=== PATIENT | female | born 1955 ===

== ENCOUNTER 2018-08-17 02:00 | Observation (INO) | payer MEDICARE, MEDICAID ==
[2018-08-16 15:05] LABS: INR 1.02
[2018-08-17] VITALS (15 sets, daily range): BP systolic 117–149; BP diastolic 64–98
[~2018-08-17] VITALS: Ht 162.6 cm; Wt 94.8 kg
[~2018-08-17 02:00] MED LIST: ALBU8.5H IH; ASPI-764 PO; BUM2 PO; BUPR-474 PO; CHOL100059 PO; ESCI20TA38 PO; FLUT1BLS3 INH; GABA-547 PO; MECO10002 PO; MELO-205 PO; OMEP40CA48 PO; OXYC-373 PO; TRAM-420 PO
[2018-08-17] MEDS ORDERED: fentaNYL CITR 250 MCG/5 ML AMP ONE (10:01)
[2018-08-17] MEDS ORDERED: KETAMINE HCL 200 MG/20 ML MDV ONE (10:01)
[2018-08-17] MEDS ORDERED: PROPOFOL EMUL(*) 10MG/ML 20 ML 20 ML ONE (10:02)
[2018-08-17] MEDS ORDERED: DEXAMETHASONE SOD PHOS 10MG/ML ONE (10:02)
[2018-08-17] MEDS ORDERED: ONDANSETRON 4 MG/2 ML VIAL ONE (10:02)
[2018-08-17] MEDS ORDERED: ROPIVACAINE 0.2% 20 ML VIAL ONE (10:49)
[2018-08-17] MEDS ORDERED: ROPIVACAINE 0.2% 400 MG/200ML 250 ML CONINFUS ONE (11:35)
[2018-08-17] MEDS ORDERED: cloNIDine EPIDUR INJ 100MCG/ML 40 MCG, ROPIVACAINE 0.5% 20 ML VIAL 25 ML, EPINEPHrine H... INJ ONE (11:35)
[2018-08-17] MEDS ORDERED: TRANEXAMIC AC 1000 MG/10ML SDV 1,000 MG in DEXTROSE 5% 50 ML BAG 50 ML IV ONE (11:35)
[2018-08-17] MEDS ORDERED: ceFAZolin(*) 2GM/D5W 50ML 50 ML IVPB ONE (11:35)
[2018-08-17] MEDS ORDERED: LIDOCAINE/SOD BICARB 8.4% SYR ID ONE (11:35)
[2018-08-17] MEDS ORDERED: MIDAZOLAM 2 MG/2 ML VIAL IVP PRN (11:35)
[2018-08-17] MEDS ORDERED: FAMOTIDINE 20 MG TAB PO ONE (11:35)
[2018-08-17] MEDS ORDERED: ACETAMINOPHEN 500 MG TAB PO ONE (11:35)
[2018-08-17] MEDS ORDERED: PREGABALIN 150 MG CAPSULE PO ONE (11:35)
[2018-08-17] MEDS ORDERED: NORMOSOL R SOLN(*) 1000 ML BAG 1,000 ML IV PRN ×2 (11:35→15:40)
[2018-08-17] MEDS ORDERED: GLYCOPYRROLATE 0.2MG/ML 1 ML INJ ONE (12:45)
[2018-08-17] MEDS ORDERED: ROCURONIUM BROM 10 MG/ML 5 ML ONE (12:45)
[2018-08-17] MEDS ORDERED: LIDOCAINE 2% JELLY 5 ML TUBE ONE (13:26)
[2018-08-17] MEDS ORDERED: fentaNYL CITR 100 MCG/2 ML AMP ONE ×2 (14:32→14:50)
[2018-08-17] MEDS ORDERED: BISACODYL 10 MG SUPP PR PRN (15:40)
[2018-08-17] MEDS ORDERED: PROMETHAZINE 25 MG/ML 1 ML AMP IVP PRN (15:40)
[2018-08-17] MEDS ORDERED: MORPHINE 4 MG/ML SDV IVP PRN (15:40)
[2018-08-17] MEDS ORDERED: ONDANSETRON 4 MG/2 ML VIAL IVP PRN (15:40)
[2018-08-17] MEDS ORDERED: FLUSH 10 ML SYR IVP PRN (15:40)
[2018-08-17] MEDS ORDERED: ZOLPIDEM TARTRATE 5 MG TAB PO PRN (15:40)
[2018-08-17] MEDS ORDERED: MAGNESIUM HYDROXIDE* 30ML UDCP PO PRN (15:40)
[2018-08-17] MEDS ORDERED: KETOROLAC TROM 10MG TAB PO PRN (15:45)
[2018-08-17] MEDS ORDERED: ALBUTEROL 8 GM INHALER INH PRN (16:00)
--- NOTE | 2018-08-17 16:06 | Hospitalist Consultation ---
History of Present Illness Requesting Physician Dr. Kunz Reason for Consult Medical Management- Asthma, Depression Chief Complaint s/p right total knee replacement History of Present Illness She was admitted s/p right total knee replacement. It is reported the surgery went well and without complication. History Problems: (1) Depression Status: Chronic (2) Asthma Status: Chronic Home Meds Reported Medications Bumetanide (BUMETANIDE) 2 Mg Tab, 2 MG PO DAILY PRN for EDEMA, TAB 08/11/18 Tramadol Hcl (TRAMADOL HCL) 50 Mg Tablet, 100 MG PO QID PRN for PAIN, TAB 08/11/18 Albuterol Sulfate 90 Mcg/Act (PROAIR HFA 90 MCG/ACT) 8.5 Gm Hfa.aer.ad, 1-2 PUFF IH 3-4XD PRN for DYSPNEA, INHALER 03/12/17 Fluticasone/Vilanterol (Breo Ellipta 200-25 Mcg INH) 1 Each Blst.w.dev, 1 PUFF INH QDAY 03/12/17 Omeprazole (OMEPRAZOLE) 40 Mg Capsule.dr, 40 MG PO BID, CAP 03/12/17 Gabapentin (GABAPENTIN) 100 Mg Capsule, 400 MG PO QHS, CAPSULE 03/12/17 Escitalopram Oxalate (LEXAPRO) 20 Mg Tablet, 20 MG PO QDAY, TAB 03/12/17 Bupropion Hcl (WELLBUTRIN XL) 300 Mg Tab.er.24h, 300 MG PO QDAY, TAB 03/12/17 Discontinued Reported Medications Oxycodone Hcl/Acetaminophen (OXYCODONE-ACETAMINOPHEN 5-325) 1 Each Tablet, 1-2 EACH PO Q6H PRN for PAIN, #60 TAB 03/20/17 Cholecalciferol (Vitamin D3) (VITAMIN D3) 1,000 Unit Capsule, 1000 UNIT PO QDAY, CAPSULE 03/12/17 Mecobalamin (B-12) 1,000 Mcg Tab.rapdis, 1 TAB PO QDAY 03/12/17 Discontinued Scripts Aspirin (ASPIRIN EC) 325 Mg Tablet., 325 MG PO QDAY for 30 Days, Prov:ILANA MONTES MD 03/19/17 Allergies: Coded Allergies: Sulfa (Sulfonamide Antibiotics) (Verified Allergy, Intermediate, RASH, 03/12/17) codeine (Verified Adverse Reaction, Intermediate, GI DISTRESS, 03/12/17) hydrocodone (Verified Adverse Reaction, Intermediate, GI DISTRESS, 03/12/17) naproxen (Verified Adverse Reaction, Intermediate, GI DISTRESS, 03/12/17) Patient History: Diabetes mellitus MOTHER BROTHER OR SISTER BROTHER OR SISTER FH: myocardial infarction FATHER BROTHER OR SISTER BROTHER OR SISTER Hx Smoking: Yes (QUIT 1977, 1 PACK Q2MO FOR 2YRS) Smoking Status: Former Smoker Exposure to Second Hand Smoke?: Yes (sposue for 28 years) When Quit Tobacco?: 1977 Caffeine Intake: Tea Caffeine/Cups Per Day: 6-7 Hx Alcohol Use: No Hx Substance Use Disorder: No Social Drug Use: Never Review of Systems All Systems Reviewed/Normal: Yes, Except as Noted Exam Vital Signs Vital Signs Date Time Temp Pulse Resp B/P (MAP) Pulse Ox O2 Delivery O2 Flow Rate FiO2 08/17/18 15:15 81 16 97 08/17/18 08:45 97.7 139/78 (98) Room Air General Appearance: Alert, Awake, No Acute Distress, Afebrile Neuro: No Gross deficits Cardiovascular: Regular Rate and Rhythm Respiratory: No Respiratory Distress, Clear to Auscultation Psych: Alert & Oriented X3, Appropriate Mood & Affect Assessment and Plan Problems: (1) S/P knee replacement Status: Acute Assessment & Plan: She is on aspirin prophylaxis. She has no history of DVT or PE. (2) Asthma Status: Chronic Assessment & Plan: She is on chronic treatment with albuterol and Breo inhalers. (3) Depression Status: Chronic Assessment & Plan: She is on chronic treatment with Wellbutrin and Lexapro. Venous Thromboembolism Antithrombotics Is Pt On Any Antithrombotics?: No Problem Qualifiers (1) S/P knee replacement: Laterality: right Qualified Codes: Z96.651 - Presence of right artificial knee joint ZEV BETANCOURTP Aug 17, 2018 16:06
--- NOTE | 2018-08-17 16:07 | RADIOLOGY IMAGING REPORT ---
FACILITY: [facility] - [place] PATIENT NAME: Sully Lau : 1955 MR: [id number] V: [id number] EXAM DATE: ORDERING PHYSICIAN: ANIKET CALVERT TECHNOLOGIST: Location: [facility] [place] Patient: Sully Lau : 1955 Visit/Account:[id number] Date of Sevice: 08/17/2018 Exam type: KNEE LIMITED RIGHT History: S/P TOTAL KNEE ARTHROPLASTY Comparison: None. Findings: Two views the right knee demonstrate a right knee arthroplasty in good anatomic alignment. Soft tiss ue gas projects over the anterior aspect this postoperative knee IMPRESSION: 1. As above Report Dictated By: Cynthia Kan MD at 08/17/2018 4:02 PM Report E-Signed By: Cynthia Kan MD at 08/17/2018 4:03 PM WSN:[id number]
[2018-08-17] MEDS: ACETAMINOPHEN 500 MG TAB PO SCH (16:55)
[2018-08-17] MEDS ORDERED: NS(*) 0.9% 250 ML BAG 250 ML ONE (20:16)
[2018-08-17] MEDS: ceFAZolin(*) 2GM/D5W 50ML 50 ML IVPB SCH (20:40)
[2018-08-17] MEDS: oxyCODONE HCL 5 MG CAP PO PRN (20:41)
[2018-08-17] MEDS: PANTOPRAZOLE SOD 40 MG TABEC PO SCH (20:41)
[2018-08-17] MEDS: GABAPENTIN(*) 100 MG CAP 100 MG, GABAPENTIN(*) 300 MG CAP 300 MG PO SCH (20:41)
[2018-08-17] MEDS ORDERED: NON-FORMULARY MEDICATION MISCELL (Gabapentin 400 MG) PO SCH (21:00)
[2018-08-18] MEDS: ACETAMINOPHEN 500 MG TAB PO SCH ×3 (01:17→18:04)
[2018-08-18] MEDS: ceFAZolin(*) 2GM/D5W 50ML 50 ML IVPB SCH ×2 (04:13→11:22)
[2018-08-18 04:17] VITALS: BP 119/68
[2018-08-18] MEDS: oxyCODONE HCL 5 MG CAP PO PRN ×5 (04:37→22:51)
[2018-08-18] MEDS ORDERED: FLUTICASONE/VILANTEROL 1 EACH INHALER INH SCH (06:00)
[2018-08-18 08:16] VITALS: BP 131/60
[2018-08-18] MEDS: buPROPion XL 150 MG TABCR PO SCH (08:38)
[2018-08-18] MEDS: ASPIRIN 325 MG TAB PO SCH (08:39)
[2018-08-18] MEDS: ESCITALOPRAM OXALATE 10 MG TAB PO SCH (08:39)
[2018-08-18] MEDS: PANTOPRAZOLE SOD 40 MG TABEC PO SCH ×2 (08:39→22:51)
--- NOTE | 2018-08-18 09:40 | Hospitalist Progress Note ---
Subjective Progress Notes Subjective She has no complaints this morning. She had no acute events overnight. Patient Complains of: Cardiovascular: No: Chest Pain Respiratory: No: Shortness of Breath Physical Exam Vital Signs Date Time Temp Pulse Resp B/P (MAP) Pulse Ox O2 Delivery O2 Flow Rate FiO2 08/18/18 09:02 91 Room Air 08/18/18 08:16 98.4 66 18 131/60 (83) 08/18/18 04:17 0.5 Intake and Output 08/18/18 07:00 Intake Total 2088.4 ml Output Total 275 ml Balance 1813.4 ml Intake Oral 300 ml IV Total 1788.4 ml Output Estimated Blood Loss 275 ml # Voids 1 General Appearance: Alert, Awake, No Acute Distress, Afebrile Neuro: No Gross deficits Cardiovascular: Regular Rate and Rhythm Respiratory: No Respiratory Distress, Clear to Auscultation Extremities: No Edema Psych: Alert & Oriented X3, Appropriate Mood & Affect Result Diagram: 08/18/18 0515 Assessment and Plan Problems: (1) S/P knee replacement Status: Acute Assessment & Plan: She is on aspirin prophylaxis. She has no history of DVT or PE. (2) Asthma Status: Chronic Assessment & Plan: She is on chronic treatment with albuterol and Breo inhalers. (3) Depression Status: Chronic Assessment & Plan: She is on chronic treatment with Wellbutrin and Lexapro. Exam Sepsis Risk: No Definite Risk Problem Qualifiers (1) S/P knee replacement: Laterality: right Qualified Codes: Z96.651 - Presence of right artificial knee joint ZEV BETANCOURT Aug 18, 2018 09:40
[2018-08-18 09:48] VITALS: Ht 162.6 cm; Wt 94.8 kg
[2018-08-18 11:24] VITALS: BP 139/79
[2018-08-18 14:35] VITALS: BP 110/63
[2018-08-18] MEDS: GABAPENTIN(*) 100 MG CAP 100 MG, GABAPENTIN(*) 300 MG CAP 300 MG PO SCH (22:51)
[2018-08-18 22:53] VITALS: BP 137/80
[2018-08-19] MEDS: ACETAMINOPHEN 500 MG TAB PO SCH ×2 (01:39→08:44)
[2018-08-19 02:55] VITALS: BP 125/69
[2018-08-19] MEDS: oxyCODONE HCL 5 MG CAP PO PRN ×2 (02:59→08:44)
[2018-08-19 07:27] VITALS: BP 139/73
[2018-08-19] MEDS: PANTOPRAZOLE SOD 40 MG TABEC PO SCH (08:44)
[2018-08-19] MEDS: ASPIRIN 325 MG TAB PO SCH (08:44)
[2018-08-19] MEDS: ESCITALOPRAM OXALATE 10 MG TAB PO SCH (08:44)
[2018-08-19] MEDS: buPROPion XL 150 MG TABCR PO SCH (08:53)
[2018-08-19] MEDS ORDERED: OXYC5CAP21 PO (09:31)
[2018-08-19] MEDS ORDERED: ASPI-757 PO (10:12)
--- NOTE | 2018-08-19 11:09 | Hospitalist Progress Note ---
Subjective Progress Notes Subjective She has no complaints this morning. She had no acute events overnight. Patient Complains of: Cardiovascular: No: Chest Pain Respiratory: No: Shortness of Breath Physical Exam Vital Signs Date Time Temp Pulse Resp B/P (MAP) Pulse Ox O2 Delivery O2 Flow Rate FiO2 08/19/18 10:16 Room Air 08/19/18 07:31 94 08/19/18 07:27 98.5 83 12 139/73 (95) Intake and Output 08/19/18 01:00 Intake Total 842.4 ml Balance 842.4 ml Intake Oral 780 ml IV Total 62.4 ml # Voids 3 General Appearance: Alert, Awake, No Acute Distress, Afebrile Neuro: No Gross deficits Cardiovascular: Regular Rate and Rhythm Respiratory: No Respiratory Distress, Clear to Auscultation GI: Soft and Non-Tender Extremities: Warm, Perfused; No Edema Psych: Alert & Oriented X3, Appropriate Mood & Affect Result Diagram: 08/19/18 0529 Assessment and Plan Problems: (1) S/P knee replacement Status: Acute Assessment & Plan: She is on aspirin prophylaxis. She has no history of DVT or PE. (2) Asthma Status: Chronic Assessment & Plan: She is on chronic treatment with albuterol and Breo inhalers. (3) Depression Status: Chronic Assessment & Plan: She is on chronic treatment with Wellbutrin and Lexapro. Exam Sepsis Risk: No Definite Risk Problem Qualifiers (1) S/P knee replacement: Laterality: right Qualified Codes: Z96.651 - Presence of right artificial knee joint ZEV BETANCOURT Aug 19, 2018 11:09
--- NOTE | 2018-09-01 14:13 | OPERATIVE REPORT 1 ---
EVENT DATE: August 17, 2018 SURGEON: Aniket Kunz MD ANESTHESIOLOGIST: Vasquez English MD ANESTHESIA: Right adductor block, followed by indwelling catheter and general anesthesia. We also utilized 50 mL of our standard ropivacaine/Toradol cocktail at the end of the case. TANK TRUCK ENGINE MECHANIC: ZEINAB Munoz PREOPERATIVE DIAGNOSIS Right knee degenerative joint disease. POSTOPERATIVE DIAGNOSIS Right knee degenerative joint disease. PROCEDURE PERFORMED Right total knee arthroplasty. IMPLANTS MicroPort Medial-Pivot CS system with a 5 femur, 4 tibia, 12 mm CS insert, 8 x 29 symmetric patella, femur cut to 6 degrees of valgus, 10 mm. We also utilized two packages of [employer]Joy [place] Blue Cement and ZipLine wound closure system. SPECIMENS None. COMPLICATIONS None. BLOOD LOSS Less than 200 mL. OPERATION Patient was brought to the OR. After receiving appropriate preoperative antibiotic, Dr. English performed right adductor block followed by general anesthesia. Right thigh tourniquet placed, but was not utilized. Right lower extremity prepped and draped in the usual sterile fashion. Midline incision made, followed by medial patellar arthrotomy. We dissected subperiosteally along the medial tibial plateau to the level of the semimembranosus insertion. There was significant fat pads which was excised. Patella released and everted. Knee brought up in hyperflexion. ACL and PCL were released subperiosteally by Bovie. Sagittal saw was utilized to remove the remaining articular cartilage from distal femoral condyles and a step cut drill utilized to broach the canal. Distal femoral intramedullary alignment guide was placed, setting this up at 10 mm, 6 degrees valgus. This was pinned into place. Soft tissues were protected, and cut made. We then placed our sizing guide, so referencing off the anterior flange, epicondyles, posterior condyles. Femur was sized to a 5. We drilled the 3-degree external rotation holes. Four-in-one cutting block was positioned, followed by Z retractors, and the cuts were made. The tibia was brought anterior to the femur with the appropriate retractors. Step cut drill was utilized to broach the tibial canal, then intramedullary tibial guide positioned. This was referenced for slope, and we set up 10 mm off the least involved tibial plateau and assessed for rotation, and the block was pinned into place. Retractors were placed to protect the soft tissue, and cut was made. Tibia was sized to a #4. Stump of the ACL and PCL, medial and lateral meniscus were removed by Bovie, followed by removal of posterior osteophytes by curved osteotome and elevation of the capsule with a Rolon elevator. Trial tibial baseplate was then positioned referencing from the previous rotation, pinning into place. We placed a 10 mm, but we eventually moved up to a 12 mm insert. Femur was #5. This achieved full extension, flexion limited by body habitus, stability to varus/valgus stress, and appropriate endpoint and anterior drawer. Knee was brought in full extension. Patella was sized at 17/18 mm to create a step. We then did a freehand cut to get down to 14 mm. Laterally, there was eburnation which was drilled with a 1.5 mm drill bit. Peg hole guide positioned inferomedially, a peg hole was drilled, and the 6 accepted an 8 x 29 trial. The knee was brought up into flexion once again. Peg hole was drilled for the femur. Peg was placed. We cut for a trochlear chip, and this was placed. Again, we had the aforementioned range of motion and stability. The patella tracked well. Patella, femur, and tibial insert removed. Appropriate retractors were placed. Placed our keel tower which was then cut, reamed, and punched, and this instrumentation was removed. Bone plug placed in the distal femur. We copiously irrigated by pulse lavage while we mixed two packages of [employer] [place] Blue Cement. 10 mL of our cocktail were injected in the posterior capsule, and we placed the knee in appropriate position. Starting with the tibia, this was cemented in place, followed by our 12 mm insert, and then our #5 femur. Excess cement was removed. Knee brought in full extension. With axial compression, we cemented patella. Took 13 minutes for the cement to harden. While this was curing, we copiously irrigated by pulse lavage and injected remaining 40 mL of our cocktail in the distal quads. We then placed the knee at 30 degrees, closed the arthrotomy with #2 Vicryl, followed by 2-0 Vicryl for the subcutaneous tissues and ZipLine wound closure system for the skin. A compressive dressing was applied. Patient extubated and taken to Recovery in stable condition. Hospitalist team will be consulted for medical management and anticoagulation, PT for rehab. <Electronically signed by ANIKET KUNZ MD> D/ [id number] SHREYA/DIANA CC: ANIKET KUNZ MD [facility]
== END 2018-08-19 09:29 | disposition home health service (06) ==
LOC: OR 02:00 → MED 15:50
PROVIDERS: ADMIT Orthopaedic Surgery; ATTEND Orthopaedic Surgery
DX: M17.11 Unilateral primary osteoarthritis, right knee (principal); I10 Essential (primary) hypertension; M79.89 Other specified soft tissue disorders; F32.9 Major depressive disorder, single episode, unspecified; J45.909 Unspecified asthma, uncomplicated
CPT/HCPCS: 27447; 36415; 73560; 76942; 85014; 85018; 85610; 86850; 86900; 86901; 94640; 97116; 97162; 97530; A9270; C1713; C1776; G0378; J0171; J0735; J1100; J1885; J2250; J2270; J2405; J2704; J2795; J3010; J3490; J7050; J7060; J0690; J3535